=== PATIENT | male | born 1995 | race Caucasian/White ===

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

== ENCOUNTER 2017-01-09 20:49 | Emergency (ER) | payer BC ==
[2017-01-09 20:56] VITALS: PULSE 64; O2SAT 95
--- NOTE | 2017-01-09 21:47 | EDPHY ---
H & P Stated Complaint: waking up in middle of night gasping for air HPI/ROS: CHIEF COMPLAINT: Shortness of breath HISTORY OF PRESENT ILLNESS: Patient complains of 2 weeks of shortness of breath he symptoms are mild to moderate when lying down. They wake him at night and becomes anxious about this. He has no chest pain. No cough. No fever or chills. No abdominal pain. No lower extremity erythema edema or pain. Did drive back from [place] just prior to the symptoms starting. Seen here recently with a reportedly normal chest x-ray. He was prescribed albuterol. He has been taking this without any improvement in his symptoms. No other associated complaints or modifying factors at this time pain REVIEW OF SYSTEMS: Ten systems reviewed and are negative unless otherwise noted in the HPI PERTINENT MEDICAL HISTORY: Noncontributory EXAMINATION General Appearance: Alert, no distress Head: normocephalic, atraumatic Eyes: Pupils equal and round, no conjunctival pallor or injection ENT, Mouth: Mucous membranes moist. Uvula midline. Neck: Normal inspection, supple, non-tender Respiratory: Lungs are clear to auscultation. no wheezing, rhonchi or crackles. No consolidation or diminishment. Cardiovascular: Regular rate and rhythm. No murmur. Pulses intact distally. Gastrointestinal: Abdomen is soft and nontender. No flank pain. Back: non-tender, no bony abnormalities Neurological: A&O, nonfocal, normal gait Skin: Warm and dry, no rash Extremities: Nontender, no pedal edema Psychiatric: Mood and affect normal DIFFERENTIAL DIAGNOSES: Including but not limited to dyspnea, anxiety, PE, pneumonia MDM: 9:30 p.m. Patient complains of ongoing shortness of breath. It is worse at night. Sometimes worse with exertion. Always worse with lying down. Has no chest pain at this time. He does have a recent road trip to [place] that he drove back from. Has no lower extremity erythema, edema or pain. He was here recently within normal chest x-ray. He has been taking albuterol with no improvement. I have ordered a D-dimer as the patient is low risk for venous thrombolic event. 10:20 p.m. D-dimer is negative. Vital signs are stable. I do not feel the patient warrants another chest x-ray is his vital signs are within normal limits and his auscultation is clear in all jeffries. I have re-evaluated the patient. He remains in no acute distress with stable vital signs. I will discharge him home with referral to primary care physician for outpatient workup. He is comfortable with this plan. We discussed return to the emergency department precautions. He is discharged home in stable condition. SUPERVISION: This patient was independently evaluated without direct examination by the attending physician. Case was discussed with attending physician. Source: Patient, Old records Exam Limitations: No limitations - Personal History Current Tetanus/Diphtheria Vaccine: Yes Current Tetanus Diphtheria and Acellular Pertussis (TDAP): Yes - Medical/Surgical History Hx Asthma: No Hx Chronic Respiratory Disease: No Hx Diabetes: No Hx Cardiac Disease: No Hx Renal Disease: No Hx Cirrhosis: No Hx Alcoholism: No Hx HIV/AIDS: No Hx Splenectomy or Spleen Trauma: No Other PMH: heart murmur - Social History Smoking Status: Current some day smoker Constitutional: Initial Vital Signs Temperature (C) 98.4 F 01/09/17 20:55 Heart Rate 64 01/09/17 20:55 Respiratory Rate 17 01/09/17 20:55 Blood Pressure 151/85 H 01/09/17 20:55 O2 Sat (%) 95 01/09/17 20:55 O2 Delivery Mode Room Air Allergies/Adverse Reactions: No Known Allergies Allergy (Verified 01/09/17 20:54) Home Medications: Medication Instructions Recorded Albuterol [Proventil Inhaler HFA 1 - 2 puffs IH Q4H #1 mdi 12/26/16 (*)] LORazepam [Ativan] 1 mg PO DAILY #5 tablet 12/26/16 Medical Decision Making - Data Points Laboratory Results: Laboratory Results 01/09/17 21:50 01/09/17 01/09/17 21:50 21:50 WBC 6.91 10^3/uL 10^3/uL (3.80-9.50) RBC 4.64 10^6/uL 10^6/uL (4.40-6.38) Hgb 15.3 g/dL g/dL (13.7-17.5) Hct 41.9 % % (40.0-51.0) MCV 90.3 fL fL (81.5-99.8) MCH 33.0 pg pg (27.9-34.1) MCHC 36.5 g/dL g/dL (32.4-36.7) RDW 11.7 % % (11.5-15.2) Plt Count 292 10^3/uL 10^3/uL (150-400) MPV 9.4 fL fL (8.7-11.7) Neut % (Auto) 46.4 % % (39.3-74.2) Lymph % (Auto) 41.4 % % (15.0-45.0) [place] % (Auto) 8.7 % % (4.5-13.0) Eos % (Auto) 2.5 % % (0.6-7.6) Baso % (Auto) 0.9 % % (0.3-1.7) Nucleat RBC Rel Count 0.0 % % (0.0-0.2) Absolute Neuts (auto) 3.21 10^3/uL 10^3/uL (1.70-6.50) Absolute Lymphs (auto) 2.86 10^3/uL 10^3/uL (1.00-3.00) Absolute Monos (auto) 0.60 10^3/uL 10^3/uL (0.30-0.80) Absolute Eos (auto) 0.17 10^3/uL 10^3/uL (0.03-0.40) Absolute Basos (auto) 0.06 10^3/uL 10^3/uL (0.02-0.10) Absolute Nucleated RBC 0.00 10^3/uL 10^3/uL (0-0.01) Immature Gran % 0.1 % % (0.0-1.1) Immature Gran # 0.01 10^3/uL 10^3/uL (0.00-0.10) D-Dimer < 0.27 ug/mLFEU ug/mLFEU (0.00-0.50) Departure - Departure Disposition: Home, Routine, Self-Care Clinical Impression: Dyspnea Qualifiers: Dyspnea type: unspecified Qualified Code(s): R06.00 - Dyspnea, unspecified Condition: Good Instructions: Dyspnea (ED) Additional Instructions: Follow-up with primary care physician. Return to the ER for any chest pain or worsening symptoms. Referrals: NONE *PRIMARY CARE P,. [Primary Care Provider] - As per Instructions Haris Carter MD [place] [place] - As per Instructions
[2017-01-09 22:01] LABS: % IMMATURE GRANULYOCYTES 0.1 % (0.0-1.1); ABSOLUTE IMMATURE GRANULOCYTES 0.01 10^3/uL (0.00-0.10); ADD DIFF? NO; ADD MORPH? NO; ADD SCAN? NO; ATYPICAL LYMPHOCYTE FLAG 20 (0-99); FRAGMENT RBC FLAG 0 (0-99); HEMATOCRIT 41.9 % (40.0-51.0); HEMOGLOBIN 15.3 g/dL (13.7-17.5); LEFT SHIFT FLG 0 (0-99); LIPEMIA HEMOLYSIS FLAG 90 (0-99); MEAN CELL HEMOGLOBIN CONCENTR. 36.5 g/dL (32.4-36.7); MEAN CELL VOLUME 90.3 fL (81.5-99.8); MEAN PLATELET VOLUME 9.4 fL (8.7-11.7); PLATELET CLUMPS FLAG 0 (0-99); PLATELET COUNT 292 10^3/uL (150-400); RED BLOOD CELL COUNT 4.64 10^6/uL (4.40-6.38); RED CELL DISTRIBUTION WIDTH 11.7 % (11.5-15.2)
[2017-01-09 22:45] VITALS: BP 123/70; RESP 18; TEMP 97.9
== END 2017-01-09 22:44 | disposition home or self-care (01) ==
DX: R06.00 Dyspnea, unspecified (principal); F17.200 Nicotine dependence, unspecified, uncomplicated

== ENCOUNTER 2017-07-22 16:38 | Emergency (ER) | payer BC ==
[2017-07-22 16:43] VITALS: TEMP 98.6
--- NOTE | 2017-07-22 17:09 | EDPHY ---
H & P Stated Complaint: INJURED LEFT KNEE ON TRAMPOLINE 2 DAYS AGO Time Seen by Provider: 07/22/17 17:06 HPI/ROS: HPI: This is a 21-year-old male presents with Chief Complaint: Left knee injury Location: Left knee Quality: Injury Duration: 2 days ago Signs and Symptoms: No bleeding, no radiation, no numbness, no weakness, no tingling, + decreased range of motion, + swelling, + pain Timing: Sudden Severity: Moderate Context: [place], when he accidentally came down and medially displaced his knee with immediate moderate pain that was nonradiating. He had increased pain with weight-bearing. For the last 2 days he has been trying to stay off of it and ice it but the pain persists. Modifying Factors: See above Comment: ROS: see HPI Constitutional: No fever, no chills, no weight loss Eyes: No blurred vision Respiratory: No shortness of breath, no cough Cardiovascular: No chest pain Gastrointestinal: No nausea, no vomiting no diarrhea Genitourinary: No dysuria Extremities: No myalgias Neurologic: No weakness, no numbness Skin: No rashes Hematologic: No bruising, no bleeding MEDICAL/SURGICAL/SOCIAL HISTORY: Medical history: Generally healthy. Does not take any regular medications. Surgical history: Denies Social history: Employed as construction ironworker helper CONSTITUTIONAL: Pleasant, polite young adult white male, awake and alert, no obvious distress HEENT: Atraumatic and normocephalic, PERRL, EOMI. Tympanic membranes clear. Oropharynx clear, no exudate and moist pink mucosa. Airway patent. No lymphadenopathy. No meningismus. Cardiovascular: Normal S1/S2, regular rate, regular rhythm, without murmur rub or gallop. PULMONARY/CHEST: Symmetrical and nontender. Clear to auscultation bilaterally. Good air movement. No accessory muscle usage. ABDOMEN: Soft, nondistended, nontender, no rebound, no guarding, no peritoneal signs, no masses or organomegaly. No CVAT. EXTREMITIES: 2/2 pulses, LEFT KNEE: Moderate suprapatellar effusion, no medial and lateral joint line tenderness, full extension to 180, flexion to 90 , pain with varus and valgus exam. Mild Pain with anterior drawer and posterior drawer test. strength 5/5, no deformities, no clubbing, no cyanosis or edema. NEUROLOGICAL: no focal neuro deficits. GCS 15. SKIN: Warm and dry, no erythema. no rash. Good capillary refill. Source: Patient Exam Limitations: No limitations - Personal History Current Tetanus Diphtheria and Acellular Pertussis (TDAP): Yes Tetanus Vaccine Date: < 10 YEARS - Medical/Surgical History Hx Asthma: No Hx Chronic Respiratory Disease: No Hx Diabetes: No Hx Cardiac Disease: No Hx Renal Disease: No Hx Cirrhosis: No Hx Alcoholism: No Hx HIV/AIDS: No Hx Splenectomy or Spleen Trauma: No Other PMH: heart murmur - Social History Smoking Status: Former smoker Constitutional: Initial Vital Signs Temperature (C) 37 C 07/22/17 16:39 Heart Rate 120 H 07/22/17 16:39 Respiratory Rate 16 07/22/17 16:39 Blood Pressure 144/119 H 07/22/17 16:39 O2 Sat (%) 96 07/22/17 16:39 O2 Delivery Mode Room Air Allergies/Adverse Reactions: No Known Allergies Allergy (Verified 07/22/17 16:44) Home Medications: Medication Instructions Recorded NK [No Known Home Meds] 07/22/17 Medical Decision Making ED Course/Re-evaluation: Left knee x-ray ordered and ice pack applied Suspect internal derangement primarily MCL/ACL No signs of neurovascular compromise/tenting of skin/compartment syndrome/ extremities and joints examined above and below area of concern and are neurovascularly intact. 1720: Left knee x-ray via PACs my read shows no dislocation/fracture; + effusion noted Placed in knee immobilizer, nonweightbearing with crutches; advance as tolerated , rice therapy Advised Ortho follow-up as will likely need MRI of his knee outpatient Differential Diagnosis: Knee injury while [] including but not limited to fracture, ACL injury, contusion, muscular strain, and meniscus injury. Departure - Departure Disposition: Home, Routine, Self-Care Clinical Impression: Internal derangement of left knee, Effusion of left knee joint Condition: Good Instructions: Knee Sprain (ED), Knee Immobilizer (ED), Meniscus Tear (ED) Additional Instructions: Wear knee immobilizer and use crutches; nonweightbearing status until seen for follow-up by orthopedics. Take ibuprofen 600 mg every 6-8 hours with food as needed for pain and inflammation. Apply ice for 30 minutes at a time; 2-3 times per day for the next 1-2 days. Follow up with Orthopedics in 7-10 days at which time they will evaluate and recommend with you if conservative management, further diagnostic imaging like MRI versus surgery is indicated. The x-rays obtained in the emergency department today demonstrate no evidence of an obvious fracture. Sometimes fractures are not obvious on the initial set of x-rays performed in the ED. For this reason, you should have repeat x-rays performed in 7-10 days if you are having any pain exclude the possibility of an occult fracture. Referrals: Emiliano Null MD [Medical Doctor] - As per Instructions Stand Alone Forms: Work Excuse
[2017-07-22 17:36] VITALS: BP 123/76; PULSE 101; RESP 18; O2SAT 94
== END 2017-07-22 17:36 | disposition home or self-care (01) ==
DX: M23.92 Unspecified internal derangement of left knee (principal); M25.462 Effusion, left knee; Z87.891 Personal history of nicotine dependence; X58.XXXA Exposure to other specified factors, initial encounter; Y99.8 Other external cause status; Y93.39 Activity, other involving climbing, rappelling and jumping off
CPT/HCPCS: L1830